=== PATIENT | male | born 1965 | race African-American/Black ===

== ENCOUNTER 2017-11-08 09:02 | Emergency (ER) | payer MEDICARE, MEDICAID ==
[2017-11-08 10:01] LABS: BASOPHILS 0.1 % (0-2); EOSINOPHILS 0.4 % (0-7); HEMATOCRIT 36.5 % (42.0-54.0); HEMOGLOBIN 12.5 g/dL (13.5-17.5); IMMATURE GRANULOCYTES 0.4 % (0-5); LYMPHOCYTES 19.3 % (15-50); MCH 31.1 pg (26.0-34.0); MCHC 34.2 g/dL (31.0-37.0); MCV 90.8 fL (80.0-100.0); MEAN PLATELET VOLUME 10.6 fL (7.4-10.4); MONOCYTES 5.7 % (2-11); NEUTROPHILS 74.1 % (40-80); PLATELET COUNT 181 10x3/uL (130-400); RBC 4.02 10x6/uL (4.20-6.10); WBC 7.4 10x3/uL (4.8-10.8)
[2017-11-08 10:28] LABS: ALKALINE PHOSPHATASE 106 U/L (46-116); ALT (SGPT) 65 U/L (10-68); BILIRUBIN - TOTAL 0.38 mg/dL (0.2-1.3); CALC OSMOLALITY 275 mosm/kg (275-300); CALCIUM 9.2 mg/dL (8.5-10.1); CARBON DIOXIDE 20.5 mmol/L (21.0-32.0); CHLORIDE - SERUM 101 mmol/L (98-107); CREATININE - SERUM 0.6 mg/dL (0.6-1.3); POTASSIUM - SERUM 4.5 mmol/L (3.5-5.1); PROTEIN - SERUM 7.7 g/dL (6.4-8.2); SODIUM 137 mmol/L (136-145); UREA NITROGEN 14 mg/dL (7-18); eGFR NON AFRICAN AMERICAN > 90 mL/min (90-120)
[2017-11-08 10:29] LABS: GLUCOSE 111 mg/dL (74-106)
[2017-11-08 10:58] LABS: C-REACTIVE PROTEIN < 0.2 mg/dL (0.0-0.9)
[2017-11-08 11:42] LABS: ERYTHROCYTE SEDIMENTATION RATE 9 mm/hr (0-20)
== END 2017-11-08 13:42 | disposition home or self-care (01) ==
LOC: D.ER 09:02
PROVIDERS: Family Medicine
DX: M51.26 Other intervertebral disc displacement, lumbar region (principal); M54.16 Radiculopathy, lumbar region

== ENCOUNTER → 2017-12-22 08:47 | Outpatient (CLI) | payer MEDICARE, MEDICAID | END | disposition home or self-care (01) | LOC: D.MRI 08:47 | DX: M54.16 Radiculopathy, lumbar region (principal) ==

== ENCOUNTER → 2018-09-23 09:24 | Outpatient (CLI) | payer MEDICARE, MEDICAID | END | disposition home or self-care (01) | LOC: D.MRI 09:24 | DX: K76.0 Fatty (change of) liver, not elsewhere classified (principal); R94.5 Abnormal results of liver function studies ==

== ENCOUNTER 2019-04-13 11:05 | Emergency (ER) | payer MEDICARE, MEDICAID ==
[~2019-04-13] VITALS: Ht 172.7 cm; Wt 68.2 kg
[2019-04-13 11:14] VITALS: BP 136/86; Ht 172.7 cm; Wt 68.2 kg
[2019-04-13] MEDS ORDERED: GLIPIZIDE10 MG PO (11:16)
[2019-04-13] MEDS ORDERED: GLUCOPHAGE500 MG PO (11:16)
[2019-04-13] MEDS ORDERED: MULTI-DAY VITAM1 TAB PO (11:17)
[2019-04-13] MEDS ORDERED: NEURONTIN 300300 MG PO (11:17)
[2019-04-13] MEDS ORDERED: VALTREX1000 MG PO (13:03)
[2019-04-13] MEDS ORDERED: PREDNISONE50 MG PO (13:03)
== END 2019-04-13 13:40 | disposition home or self-care (01) ==
LOC: D.ER 11:05
DX: B02.9 Zoster without complications (principal)